=== PATIENT | male | born 1940 ===

== ENCOUNTER 2017-12-18 09:00 | Day surgery (SDC) | payer MEDICARE, OTHER ==
[~2017-12-18] VITALS: Ht 185.4 cm; Wt 112.0 kg
[~2017-12-18 09:00] MED LIST: ALBU8.5H5 INH; ASPI-515 PO; CHOL200074 PO; HYDR25TA6 PO; LISI40TA PO; METH4TAB2 PO; OMEG10007 PO; SIMV10TA3 PO; SULF1TAB24 PO; TIOT18CA INH
[2017-12-18] MEDS ORDERED: MIDAZOLAM 1 MG/ML, 5ML ONE (09:04)
[2017-12-18] MEDS ORDERED: FLUMAZENIL 0.1 MG/1 ML, 5ML ONE (09:04)
[2017-12-18] MEDS ORDERED: NALOXONE 1 MG/ML, 2ML ONE (09:04)
[2017-12-18] MEDS ORDERED: FENTANYL PF 100 MCG/2ML ONE (09:04)
[2017-12-18] MEDS ORDERED: CEFAZOLIN PMX 1GM/50ML 50 ML IV STA (09:40)
[2017-12-18] MEDS ORDERED: SODIUM CHLORIDE 0.9% 1,000 ML IV SCH (09:40)
[2017-12-18 09:59] VITALS: BP 132/75
[2017-12-18] MEDS ORDERED: PLEASE ENTER HEIGHT AND WEIGHT MC SCH (10:00)
[2017-12-18 10:15] VITALS: BP 132/75
[2017-12-18] MEDS ORDERED: LIDOCAINE 2%, 20ML ONE (10:23)
== END 2017-12-18 12:06 ==
LOC: OUT 09:00
PROVIDERS: ATTEND Urology
DX: Z45.2 Encounter for adjustment and management of vascular access device (principal); C61 Malignant neoplasm of prostate; I10 Essential (primary) hypertension; E78.5 Hyperlipidemia, unspecified; Z95.1 Presence of aortocoronary bypass graft; Z79.82 Long term (current) use of aspirin; Z87.440 Personal history of urinary (tract) infections
CPT/HCPCS: 36581; 75984; 99156; 99157; J0690; J1642; J2250; J3010; J3490; J7030; J2310

== ENCOUNTER 2018-01-08 11:49 | Day surgery (SDC) | payer MEDICARE, OTHER ==
[~2018-01-08] VITALS: Ht 185.4 cm; Wt 111.0 kg
[2018-01-08] MEDS ORDERED: LIDOCAINE-MPF 2% ,5ML ONE (14:15)
[2018-01-08] MEDS ORDERED: FLUMAZENIL 0.1 MG/1 ML, 5ML ONE (14:18)
[2018-01-08] MEDS ORDERED: MIDAZOLAM 1 MG/ML, 5ML ONE (14:18)
[2018-01-08] MEDS ORDERED: FENTANYL PF 100 MCG/2ML ONE (14:18)
[2018-01-08] MEDS ORDERED: NALOXONE 1 MG/ML, 2ML ONE (14:18)
== END 2018-01-08 15:10 ==
LOC: OUT 11:49
PROVIDERS: ATTEND Urology
DX: Z45.2 Encounter for adjustment and management of vascular access device (principal); Z85.46 Personal history of malignant neoplasm of prostate
CPT/HCPCS: 36590; 77001; J2250; J3010; J3490; J2310

== ENCOUNTER → 2021-03-03 | Outpatient (CLI) | payer MEDICARE, OTHER ==
[~2021-03-03] MED LIST changes: -ASPI-515 PO; +ASPI-963 PO; -LISI40TA PO; +LISI40TA9 PO; +OMNIPAQUE 350 MG/ML, 100ML BOTTLE ONE; +SIMV10TA18 PO; -SIMV10TA3 PO; +SULF-23 PO; -SULF1TAB24 PO
== END | disposition home or self-care (01) ==
LOC: CFH 10:05
PROVIDERS: ATTEND Surgery
DX: I71.4 Abdominal aortic aneurysm, without rupture (principal); I71.2 Thoracic aortic aneurysm, without rupture; I70.0 Atherosclerosis of aorta; N28.89 Other specified disorders of kidney and ureter
CPT/HCPCS: 71275; 74174; Q9967